=== PATIENT | male | born 1995 | race American Indian/Alaskan Native ===

== ENCOUNTER 2017-10-26 10:15 | Outpatient (CLI) | payer OTHER ==
--- NOTE | 2017-10-26 23:07 | XRay Report ---
FINAL REPORT EXAM: XR ANKLE 2V RT HISTORY: METHICILLIN RESISTANT STAPHYLOCOCCUS AUREUS,GAP AND GER IN LEG TECHNIQUE: Two views of the right ankle PRIORS: None. FINDINGS: Identifies the distal end of an intramedullary tibial ger. There is a surgical plate anterior aspect of the tibia. No abnormal bony lucencies are identified. Visualized portion of the hardware is. There is cortical thickening posterior distal tibial metaphysis and adjacent fibula could be posttraumatic may be seen chronic osteomyelitis in comparison with prior exams this recommended Several small metallic foreign bodies are seen anterior aspect distal. No acute fractures are identified. IMPRESSION: Status post ORIF distal tibial fracture Cortical thickening seen distal tibia and fibula could be posttraumatic however comparison with prior studies is recommended if these could be obtained Surgical clips and metallic foreign bodies of the lower leg
== END 2017-10-26 10:16 | disposition home or self-care (01) ==
LOC: XRAY 10:15
PROVIDERS: ATTEND Internal Medicine
DX: S82.301D Unspecified fracture of lower end of right tibia, subsequent encounter for closed fracture with routine healing (principal); A49.02 Methicillin resistant Staphylococcus aureus infection, unspecified site; W45.8XXA Other foreign body or object entering through skin, initial encounter; X58.XXXD Exposure to other specified factors, subsequent encounter